=== PATIENT | male | born 1975 | race Caucasian/White ===

== ENCOUNTER 2017-02-28 12:06 | Observation (INO) | payer MEDICAID ==
--- NOTE | 2017-02-28 12:21 | EDM.PDOC ---
ED HPI GENERAL MEDICAL PROBLEM - General Chief Complaint: General Stated Complaint: HIGH BLOOD PRESSURE, ANXIETY Time Seen by Provider: 02/28/17 12:15 Source of Information: Reports: Patient. Denies: Old Records History Limitations: Reports: No Limitations - History of Present Illness INITIAL COMMENTS - FREE TEXT/NARRATIVE: Patient drove himself to the emergency room for evaluation after apparent initial evaluation by the paramedics in his home on 02/25 at about noon with blood pressure of 204/148 at that time by his history. No treatment was given by the paramedics at that time with the patient refusing transfer for further evaluation. The patient has had some intermittent nonspecific retrosternal and left-sided sharp and pressure type 10/10 chest discomfort radiating to his throat with symptoms usually lasting about 5 minutes and associated with some nausea. Symptoms reoccurred at about 07:30 hours this morning with 5/10 chest discomfort at that time, and patient deciding to come in for evaluation. Patient does admit to problems with his anxiety and depression during the last year with patient noncompliant with his medications during that period. He has had some temper outbursts but no history of suicidal or homicidal ideation, plan , etc. He from his today secondary to his temper with the patient wanting to have treatment at this time. No recent history of abdominal pain, heartburn, diarrhea, melena, gross hematochezia, or any food intolerance, including fatty foods, etc. with normal bowel movement earlier this morning. The patient also denies any recent fever, wheezing, dyspnea, etc. with stable occasional nonproductive. No history of recent diplopia, change in mental status , or other change in neurological status, however occasional nonspecific headache and visual spots. There is some mild pleuritic component to his symptoms with discomfort improved to 2/10 without treatment prior to my arrival to this facility. He also just started his Lisinopril about 4 days ago with medication noncompliance with this medication for about 4-5 months Onset: Today Onset Date: 02/28/17 Onset Time: 07:30 Duration: Getting Worse, Intermittent, Other (Otherwise as above) Location: Reports: Neck, Chest, Radiates to (Throat as above). Denies: Head, Face, Abdomen, Back, Pelvis, Upper Extremity, Left, Upper Extremity, Right Quality: Reports: Pressure, Sharp Severity: Moderate Improves with: Reports: None Worsens with: Reports: None Context: Reports: Other (As above) Associated Symptoms: Reports: Chest Pain, Cough, Headaches, Nausea/Vomiting. Denies: Confusion, cough w sputum, Diaphoresis, Fever/Chills, Loss of Appetite, Malaise, Seizure, Shortness of Breath, Syncope, Weakness Treatments DATA MANAGEMENT ANALYST: Reports: Other (see below) (None) CHEST PAIN Pain Score (Numeric/FACES): 2 - Related Data Allergies Allergy/AdvReac Type Severity Reaction Status Date / Time No Known Allergies Allergy Verified 02/28/17 12:08 Home Meds: Home Meds Lisinopril 10 mg PO DAILY 02/28/17 [History] Past Medical History HEENT History: Reports: Allergic Rhinitis, Other (See Below). Denies: Cataract , Glaucoma, Hard of Hearing, Impaired Vision, Macular Degeneration, Retinal Detachment Other HEENT History: Myopic although not wearing glasses, allergic rhinitis with no previous therapy Cardiovascular History: Reports: Hypertension. Denies: Afib, Aneurysm, Arrhythmia, Blood Clots/VTE/DVT, CAD, Heart Failure, Heart Murmur, High Cholesterol, UT, PVD, Syncope Other Cardiovascular History: Patient does not know his cholesterol status Respiratory History: Reports: Pneumothorax, Other (See Below). Denies: Asthma, COPD, Intubation, Difficult, Intubation, Previous, PE, Sleep Apnea Other Respiratory History: Bilateral spontaneous pneumothorax initially in his 20s initially on the right side than on the left side at a later date Gastrointestinal History: Reports: Gastritis, GERD. Denies: Celiac Disease, Cholelithiasis, Chronic Constipation, Chronic Diarrhea, Fecal Incontinence, GI Bleed, Hepatitis, Inflammatory Bowel Disease, Irritable Bowel Syndrome, Jaundice , Pancreatitis, PUD Genitourinary History: Reports: Other (See Below). Denies: Acute Renal Failure , BPH, Chronic Renal Insuffiency, Dialysis, Renal Calculus, Retention, Urinary, STD, Urinary Incontinence, UTI, Recurrent Other Genitourinary History: History of dark urine as a teenager with negative renal biopsy as below Musculoskeletal History: Reports: Arthritis, Back Pain, Chronic, Fracture, Osteoarthritis. Denies: Gout, Neck Pain, Chronic, RA, SLE Other Musculoskeletal History: Phalangeal fracture of Digit #5 of the right hand in his mid 20s, and distal first metacarpal fracture of the right hand at about age 25, bilateral carpal tunnel syndrome with no surgeries to this point Neurological History: Reports: Headaches, Chronic. Denies: Cerebral Aneurysms, Concussion, CVA, Head Trauma, Migraines, MS, Parkinson's, Seizure, TIA Psychiatric History: Reports: Addiction, Anxiety, Depression, Other (See Below) . Denies: Abuse, Victim of, ADD, ADHD, Psych Hospitalization(s), PTSD, Suicide Attempt, Suicidal Ideation Other Psychiatric History: Previous history of alcohol and opiate addiction as below Endocrine/Metabolic History: Reports: None. Denies: Diabetes, Type I, Diabetes , Type II, Hypothyroidism, IDDM Hematologic History: Reports: None. Denies: Anemia, Blood Transfusion(s), Iron Deficiency Immunologic History: Reports: None. Denies: AIDS, HIV, SLE Oncologic (Cancer) History: Reports: None. Denies: Basal Cell Carcinoma, Hodgkin's Lymphoma, Leukemia, Malignant Melanoma, Non-Hodgkin's Lymphoma, Squamous Cell Carcinoma Dermatologic History: Reports: None. Denies: Eczema, Psoriasis - Infectious Disease History Infectious Disease History: Reports: Chicken Pox. Denies: C-Difficile, Measles , Meningitis, Mononucleosis, MRSA, Mumps, Pertussis (Whooping Cough), Rheumatic Fever, Rubella, Scarlet Fever, Shingles, TB, VRE - Past Surgical History Head Surgeries/Procedures: Reports: None HEENT Surgical History: Reports: Oral Surgery, Other (See Below) (I was sometimes 1). Denies: Adenoidectomy, Eye Surgery, Laser Surgery, LASIK, Myringotomy w Tube(s), Naso-Sinus Surgery, Tonsillectomy Other HEENT Surgeries/Procedures: [place] teeth extraction 2 right upper and left lower with other dental extractions Cardiovascular Surgical History: Reports: None. Denies: Varicose Respiratory Surgical History: Reports: Thoracentesis, Other (See Below) Other Respiratory Surgeries/Procedures: Thoracentesis secondary to spontaneous pneumothoraces as above GI Surgical History: Reports: None. Denies: Appendectomy, Cholecystectomy, Colonoscopy, EGD, Hernia, Abdominal, Hernia, Inguinal, Hernia Repair/Other, Polypectomy Male Surgical History: Reports: Circumcision, Other (See Below). Denies: Vasectomy Other Male Surgeries/Procedures: Circumcision as an Endocrine Surgical History: Reports: None. Denies: Thyroid Biopsy Neurological Surgical History: Reports: None. Denies: C-Spine, Discectomy, Laminectomy, Lumbar Spine, Spinal Fusion, Thoracic Spine, Vertebroplasty Musculoskeletal Surgical History: Denies: Arthroscopic Procedure, Carpal Tunnel , Ganglion Cyst, Joint Replacement, ORIF, Shoulder Surgery Oncologic Surgical History: Reports: None Dermatological Surgical History: Reports: None - Past Imaging History Past Imaging History: Reports: None Social & Family History - Family History HEENT: Reports: None. Denies: Glaucoma, Macular Degeneration, Retinal Detachment Cardiac: Reports: CAD, UT, Other (See Below). Denies: Afib, Aneurysm, Arrhythmia, Blood Clots/VTE/DVT, Heart Failure, High Cholesterol, Hypertension, Syncope Other Cardiac Family History: Maternal grandfather with fatal UT at age 63, maternal great-grandfather with fatal UT in his 60s Respiratory: Reports: None. Denies: Asthma, COPD, PE, Pneumothorax, Sleep Apnea GI: Denies: Celiac Disease, Cholelithiasis, Colon Polyps, GERD, GI bleed, Inflammatory Bowel Disease, Irritable Bowel Syndrome, PUD : Reports: None. Denies: Dialysis, Renal Calculus, Renal Disease/ Insufficiency OBGYN: Reports: None. Denies: Endometriosis, Recurrent Spontaneous Musculoskeletal: Reports: Arthritis, Osteoarthritis, Other (See Below). Denies : Gout, RA, SLE Other Musculoskeletal Family History: Maternal grandmother with osteoarthritis and Neurological: Reports: CVA, Other (See Below). Denies: Alzheimers Disease, Cerebral Aneurysms, Dementia, Migraines, MS, Parkinson's, Seizure, TIA Other Neurological Family History: Maternal grandfather with CVA in his 60s Psychiatric: Reports: Anxiety, Bipolar, Depression, Psych Hospitalization(s), Schizophrenia, Suicide Attempt, Other (See Below). Denies: Abuse, Victim of, ADD, ADHD, PTSD Other Psychiatric Family History: Mother with bipolar disorder, suicidal ideation, borderline schizophrenia, and required psychiatric hospitalization, maternal grandmother with bipolar disorder Endocrine/Metabolic: Reports: None. Denies: Diabetes, Type I, Diabetes, type II , IDDM Hematologic: Reports: None. Denies: Anemia Immunologic: Reports: None. Denies: AIDS, HIV, SLE Dermatologic: Reports: None. Denies: Angiodema, Eczema, Psoriasis Oncologic: Reports: None. Denies: Colon, Hodgkin's Lymphoma, Leukemia, Lymphoma , Non-Hodgkin's Lymphoma, Prostate - Tobacco Use Smoking Status *Q: Current Every Day Smoker Tobacco Use Within Last Twelve Months: Cigarettes Years of Tobacco use: 30 Packs/Tins Daily: 1 (Started smoking at age 12 with maximum use of 1.5 packs per day) Smoking Cessation Information Provided To Patient: Yes Second Hand Smoke Exposure: Yes Source of Second Hand Smoke Exposure: smokes Second Hand Smoke Education Provided: Yes - Caffeine Use Caffeine Use: Reports: Coffee (4 cups per week), Soda (5 sodas per day). Denies : Energy Drinks, Tea - Alcohol Use Alcohol Use History: Yes Days Per Week of Alcohol Use: 7 (Alcohol addiction since his late 20s with alcohol treatment in about 2009) Number of Drinks Per Day: 3 (Usually beer) Total Drinks Per Week: 21 Date/Time of Last Drink Comment: Last used for about 4 days ago with previous history of withdrawals from alcohol with no history of DTs, etc. Alcohol Use in Last Twelve Months: Yes Alcohol Use Frequency: Binges - Recreational Drug Use Recreational Drug Use: Yes Drug Use in Last 12 Months: No Recreational Drug Type: Reports: Amphetamines (Speed), Marijuana/Hashish, Methamphetamine, Oxycodone, Other (see below). 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 Denies: Intravenous - Sexual History Sexual History: Reports: Sexually Active, Single Partner. 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 Denies: Fever, Chills, Malaise, Weakness , Fatigue, Night Sweats, Diaphoresis, Decreased Appetite, Weight Loss, Weight Gain HEENT: Reports: Throat Pain (Radiation current chest?), Vision Change ( Occasional nonspecific as above). Denies: Dental Pain, Ear Discharge, Ear Pain , Eye Discharge, Eye Pain, Glasses, Rhinitis, Sinus Problem, Throat Swelling, Vertigo Respiratory: Reports: Cough. Denies: Shortness of Breath, Wheezing, Pleuritic Chest Pain, Sputum, Hemoptysis Cardiovascular: Reports: Chest Pain, Blood Pressure Problem. Denies: Claudication, Dyspnea on Exertion, Edema, Lightheadedness, Orthopnea, Palpitations, PND, Syncope Endocrine: Reports: No Symptoms. Denies: Fatigue GI/Abdominal: Reports: Nausea. Denies: Abdominal Pain, Anorexia, Black Stool, Bloody Stool, Constipation, Diarrhea, Decreased Appetite, Hematemesis, Hematochezia, Melena, Stool Incontinence, Vomiting : Reports: No Symptoms. Denies: Discharge, Dysuria, Flank Pain, Frequency, Hematuria, Incontinence, Pain, Urgency, Urinary Retention Musculoskeletal: Reports: No Symptoms. Denies: Neck Pain, Shoulder Pain, Arm Pain, Back Pain, Leg Pain Skin: Reports: No Symptoms. Denies: Diaphoresis, Bruising, Wound Neurological: Reports: Headache. Denies: Dizziness, Numbness, Paresthesia, Seizure, Syncope, Tingling, Trouble Speaking, Weakness, Change in Speech, Gait Disturbance Psychiatric: Reports: Agitation, Anxiety, Depression, Mood Lability. Denies: Confusion, Cravings, Hallucinations, Homicidal Ideation, Suicidal Ideation Hematologic/Lymphatic: Reports: No Symptoms Immunologic: Reports: No Symptoms ED EXAM, GENERAL - Physical Exam Exam: See Below Exam Limited By: No Limitations General Appearance: Alert, WD/WN, No Apparent Distress, Anxious (Moderate) Eye Exam: Bilateral Eye: EOMI, Normal Inspection (No nystagmus), PERRL Ears: Normal External Exam, Normal Canal, Hearing Grossly Normal, Normal TMs Nose: Normal Inspection, Normal Mucosa, No Blood Throat/Mouth: Normal Lips, Normal Gums, Normal Oropharynx, No Airway Compromise. No: Normal Teeth (Mild broken caries and deformity in the right lower area with no abscess or drainage), Normal Voice, Dysphagia, Perioral Cyanosis Head: Atraumatic, Normocephalic. No: Facial Swelling, Facial Tenderness, Sinus Tenderness Neck: Normal Inspection, Supple, Non-Tender, Full Range of Motion. No: Carotid Bruit, Lymphadenopathy (L), Lymphadenopathy (R), Thyromegaly Respiratory/Chest: No Respiratory Distress, Lungs Clear, Normal Breath Sounds, No Accessory Muscle Use, Chest Non-Tender. No: Pleural Rub, Retractions Cardiovascular: Normal Peripheral Pulses, Regular Rate, Rhythm, No Edema, No Gallop, No JVD, No Murmur, No Rub. No: Gallop/S3, Gallop/S4, Friction Rub Peripheral Pulses: 2+: Radial (L), Radial (R), Dorsalis Pedis (L), Dorsalis Pedis (R) GI/Abdominal: Normal Bowel Sounds, Soft, Non-Tender, No Organomegaly, No Distention, No Abnormal Bruit, No Mass, Pelvis Stable. No: Guarding (Male) Exam: Deferred Rectal (Males) Exam: Deferred Back Exam: Normal Inspection, Full Range of Motion. No: CVA Tenderness (L), CVA Tenderness (R), Muscle Spasm Extremities: Normal Inspection, Normal Range of Motion, Non-Tender, No Pedal Edema, Normal Capillary Refill. No: Jaime's Sign Neurological: Alert, Oriented, CN II-XII Intact, Normal Cognition, Normal Gait, Normal Reflexes (Negative Babinski's), No Motor/Sensory Deficits Psychiatric: Anxious (Moderate), Depressed Mood (Moderate with adequate eye contact). No: Flat Affect, Tearful Skin Exam: Warm, Dry, Intact, Normal Color, No Rash. No: Diaphoretic, Ecchymosis, Petechiae, Wound/Incision Lymphatic: No Adenopathy EKG INTERPRETATION EKG Date: 02/28/17 Time: 12:24 Rhythm: NSR Rate (Beats/Min): 74 [place]: Normal (Neutral) P-Wave: Present (Mild diffuse biphasic P waves with poor R-wave progression in the anterior leads) QRS: Wide (QRS interval of 0.10 seconds representing repolarization changes with possible beginning T-wave inversion in lead aVL) ST-T: Other (As above) QT: Normal SC/PQ Interval: 0.14 seconds Comparison: NA - No Prior EKG EKG Interpretation Comments: 1. No acute ischemic changes 2. Repolarization changes Course - Vital Signs Text/Narrative:: Vital Signs - 24 hr 02/28/17 02/28/17 02/28/17 12:10 12:22 12:30 Temperature [ 37.2 C 36.7 C Temporal] Pulse, Peripheral Pulse, 102 H 86 85 Peripheral [ Right Pulse Oximetry] Respiratory 20 18 18 Rate Blood Pressure Blood Pressure 182/125 H 190/108 H 171/112 H [Left Upper Arm ] O2 Sat by Pulse 100 99 100 Oximetry O2 Sat by Pulse Oximetry [ Nasal Cannula] 02/28/17 02/28/17 02/28/17 12:44 12:45 13:05 Temperature [ Temporal] Pulse, Peripheral Pulse, 93 87 Peripheral [ Right Pulse Oximetry] Respiratory 16 16 Rate Blood Pressure 171/112 H Blood Pressure 161/104 H 163/101 H [Left Upper Arm ] O2 Sat by Pulse 99 99 Oximetry O2 Sat by Pulse Oximetry [ Nasal Cannula] 02/28/17 02/28/17 02/28/17 13:15 13:16 13:30 Temperature [ 36.2 C Temporal] Pulse, 86 Peripheral Pulse, 81 Peripheral [ Right Pulse Oximetry] Respiratory 16 Rate Blood Pressure 163/101 H Blood Pressure 141/88 H [Left Upper Arm ] O2 Sat by Pulse 99 Oximetry O2 Sat by Pulse 85 L Oximetry [ Nasal Cannula] 02/28/17 02/28/17 02/28/17 13:31 13:46 14:01 Temperature [ Temporal] Pulse, Peripheral Pulse, 75 77 72 Peripheral [ Right Pulse Oximetry] Respiratory 16 18 18 Rate Blood Pressure Blood Pressure 144/90 H 127/99 H 139/95 H [Left Upper Arm ] O2 Sat by Pulse 100 100 100 Oximetry O2 Sat by Pulse Oximetry [ Nasal Cannula] Last Recorded V/S: Last Vital Signs Temp 36.2 C 02/28/17 13:16 Pulse 72 02/28/17 14:01 Resp 18 02/28/17 14:01 BP 139/95 H 02/28/17 14:01 Pulse Ox 100 02/28/17 14:01 - Orders/Labs/Meds Orders: Active Orders 24 hr Category Date Time Status Cardiac Monitoring [RC] . DIRECTED Care 02/28/17 12:22 Active EKG Documentation Completion [RC] ASDIRECTED Care 02/28/17 12:22 Active Oxygen Therapy, ED [RC] CONTINUOUS Care 02/28/17 12:22 Active Peripheral IV Care [RC] . DIRECTED Care 02/28/17 12:22 Active Pulse Oximetry [RC] CONTINUOUS Care 02/28/17 12:22 Active Up With Assistance [RC] PFP Care 02/28/17 12:22 Active Vital Signs [RC] PFP Care 02/28/17 12:22 Active Nothing per Oral Now Diet [DIET] Diet 02/28/17 Breakfast Active Chest 1V Frontal [CR] Stat Exams 02/28/17 12:22 Taken CULTURE URINE [RM] Routine Lab 02/28/17 13:00 Received Nitroglycerin [Nitrostat] Med 02/28/17 12:23 Stat 0.4 mg SL ONETIME STA Sodium Chloride 0.9% [Saline Flush] Med 02/28/17 12:22 Active 10 ml FLUSH ASDIRECTED PRN Obtain Past Medical Record [OM.PC] Urgent Oth 02/28/17 12:22 Active Peripheral IV Insertion Adult [OM.PC] Stat Oth 02/28/17 12:22 Ordered Resuscitation Status Stat Resus Stat 02/28/17 12:22 Ordered Medication Orders Nitroglycerin (Nitrostat) 0.4 mg SL ONETIME STA Stop: 03/01/17 12:24 Last Admin: 02/28/17 12:44 Dose: 0.4 mg Sodium Chloride (Saline Flush) 10 ml FLUSH ASDIRECTED PRN PRN Reason: Keep Vein Open Labs: Laboratory Tests 02/28/17 02/28/17 02/28/17 Range/Units 13:00 13:00 13:10 WBC 8.9 (4.0-10.2) K/uL RBC 4.79 (4.33-5.41) M/uL Hgb 16.3 (13.1-16.8) g/dL Hct 46.5 (39.0-49.0) % MCV 97.1 (84.0-98.0) fL MCH 34.0 H (28.2-33.3) pg MCHC 35.1 (31.7-36.0) g/dL RDW 12.5 (11.2-14.1) % Plt Count 243 (150-350) K/uL Neut % (Auto) 64.1 (45.0-80.0) % Lymph % (Auto) 24.7 (10.0-50.0) % Williamson % (Auto) 9.7 (2.0-14.0) % Eos % (Auto) 1.2 (0.0-5.0) % Baso % (Auto) 0.3 (0.0-2.0) % Neut # (Auto) 5.70 (1.40-7.00) K/uL Lymph # (Auto) 2.20 (0.50-3.50) K/uL Williamson # (Auto) 0.86 (0.00-1.00) K/uL Eos # (Auto) 0.11 (0.00-0.50) K/uL Baso # (Auto) 0.03 (0.00-0.20) K/uL PT (9.8-11.7) SEC INR APTT (23.5-30.0) SEC D-Dimer, Quantitative (0-400) ng/mL Sodium (136-145) mmol/L Potassium (3.5-5.1) mmol/L Chloride (98-107) mmol/L Carbon Dioxide (21.0-32.0) mmol/L BUN (7-18) mg/dL Creatinine (0.51-1.17) mg/dL Est Cr Clr Drug Dosing mL/min Estimated GFR (MDRD) mL/min Glucose (74-106) mg/dL Lactic Acid (0.4-2.0) mmol/L Uric Acid (2.6-7.2) mg/dL Calcium (8.5-10.1) mg/dL Magnesium (1.8-2.4) mg/dL Total Bilirubin (0.2-1.0) mg/dL AST (15-37) U/L ALT (12-78) U/L Alkaline Phosphatase (46-116) IU/L Creatine Kinase (26-308) U/L Creatine Kinase Index (0.0-2.5) % CK-MB (CK-2) (0.00-3.60) ng/mL Troponin I (0.000-0.056) ng/mL NT-Pro-B Natriuret Pep (0-125) pg/mL Total Protein (6.4-8.2) g/dL Albumin (3.4-5.0) g/dL TSH, Ultra Sensitive (0.358-3.740) mIU/mL Specimen Type Urincc Urine Color Yellow Urine Appearance Clear Urine pH 5.5 (5.0-9.0) Ur Specific [place] 1.010 (1.005-1.030) Urine Protein Negative (NEGATIVE) mg/dL Urine Glucose (UA) Negative (NEGATIVE) mg/dL Urine Ketones Negative (NEGATIVE) mg/dL Urine Occult Blood Negative (NEGATIVE) Urine Nitrite Negative (NEGATIVE) Urine Bilirubin Negative (NEGATIVE) Urine Urobilinogen 0.2 (0.2-1.0) E.U./dL Ur Leukocyte Esterase Negative (NEGATIVE) Urine RBC 0-5 /HPF Urine WBC 0-5 /HPF Ur Epithelial Cells Rare /LPF Urine Bacteria Rare (NONE TO FEW) /HPF Urine Opiates Screen Negative (NEGATIVE) Urine Methadone Screen Negative (NEGATIVE) U Acetaminophen Screen Negative (NEGATIVE) Ur Barbiturates Screen Negative (NEGATIVE) Ur Tricyclics Screen Negative (NEGATIVE) Ur Phencyclidine Scrn Negative (NEGATIVE) Ur Amphetamine Screen Negative (NEGATIVE) U Methamphetamines Scrn Negative (NEGATIVE) U Benzodiazepines Scrn Negative (NEGATIVE) U Cocaine Metab Screen Negative (NEGATIVE) U Marijuana (THC) Screen Negative (NEGATIVE) Ethyl Alcohol (0.000-0.080) g/dL 02/28/17 02/28/17 02/28/17 Range/Units 13:10 13:10 13:10 WBC (4.0-10.2) K/uL RBC (4.33-5.41) M/uL Hgb (13.1-16.8) g/dL Hct (39.0-49.0) % MCV (84.0-98.0) fL MCH (28.2-33.3) pg MCHC (31.7-36.0) g/dL RDW (11.2-14.1) % Plt Count (150-350) K/uL Neut % (Auto) (45.0-80.0) % Lymph % (Auto) (10.0-50.0) % Williamson % (Auto) (2.0-14.0) % Eos % (Auto) (0.0-5.0) % Baso % (Auto) (0.0-2.0) % Neut # (Auto) (1.40-7.00) K/uL Lymph # (Auto) (0.50-3.50) K/uL Williamson # (Auto) (0.00-1.00) K/uL Eos # (Auto) (0.00-0.50) K/uL Baso # (Auto) (0.00-0.20) K/uL PT 10.8 (9.8-11.7) SEC INR 1.0 APTT 27.7 (23.5-30.0) SEC D-Dimer, Quantitative < 100 (0-400) ng/mL Sodium 139 (136-145) mmol/L Potassium 4.2 (3.5-5.1) mmol/L Chloride 104 (98-107) mmol/L Carbon Dioxide 27.4 (21.0-32.0) mmol/L BUN 10 (7-18) mg/dL Creatinine 0.81 (0.51-1.17) mg/dL Est Cr Clr Drug Dosing 128.47 mL/min Estimated GFR (MDRD) > 60 mL/min Glucose 85 (74-106) mg/dL Lactic Acid (0.4-2.0) mmol/L Uric Acid 3.9 (2.6-7.2) mg/dL Calcium 9.5 (8.5-10.1) mg/dL Magnesium 1.8 (1.8-2.4) mg/dL Total Bilirubin 0.5 (0.2-1.0) mg/dL AST 23 (15-37) U/L ALT 32 (12-78) U/L Alkaline Phosphatase 71 (46-116) IU/L Creatine Kinase 109 (26-308) U/L Creatine Kinase Index 0.5 (0.0-2.5) % CK-MB (CK-2) 0.50 (0.00-3.60) ng/mL Troponin I 0.000 (0.000-0.056) ng/mL NT-Pro-B Natriuret Pep 42 (0-125) pg/mL Total Protein 7.9 (6.4-8.2) g/dL Albumin 4.1 (3.4-5.0) g/dL TSH, Ultra Sensitive 1.612 (0.358-3.740) mIU/mL Specimen Type Urine Color Urine Appearance Urine pH (5.0-9.0) Ur Specific [place] (1.005-1.030) Urine Protein (NEGATIVE) mg/dL Urine Glucose (UA) (NEGATIVE) mg/dL Urine Ketones (NEGATIVE) mg/dL Urine Occult Blood (NEGATIVE) Urine Nitrite (NEGATIVE) Urine Bilirubin (NEGATIVE) Urine Urobilinogen (0.2-1.0) E.U./dL Ur Leukocyte Esterase (NEGATIVE) Urine RBC /HPF Urine WBC /HPF Ur Epithelial Cells /LPF Urine Bacteria (NONE TO FEW) /HPF Urine Opiates Screen (NEGATIVE) Urine Methadone Screen (NEGATIVE) U Acetaminophen Screen (NEGATIVE) Ur Barbiturates Screen (NEGATIVE) Ur Tricyclics Screen (NEGATIVE) Ur Phencyclidine Scrn (NEGATIVE) Ur Amphetamine Screen (NEGATIVE) U Methamphetamines Scrn (NEGATIVE) U Benzodiazepines Scrn (NEGATIVE) U Cocaine Metab Screen (NEGATIVE) U Marijuana (THC) Screen (NEGATIVE) Ethyl Alcohol (0.000-0.080) g/dL 02/28/17 02/28/17 Range/Units 13:10 13:10 WBC (4.0-10.2) K/uL RBC (4.33-5.41) M/uL Hgb (13.1-16.8) g/dL Hct (39.0-49.0) % MCV (84.0-98.0) fL MCH (28.2-33.3) pg MCHC (31.7-36.0) g/dL RDW (11.2-14.1) % Plt Count (150-350) K/uL Neut % (Auto) (45.0-80.0) % Lymph % (Auto) (10.0-50.0) % Williamson % (Auto) (2.0-14.0) % Eos % (Auto) (0.0-5.0) % Baso % (Auto) (0.0-2.0) % Neut # (Auto) (1.40-7.00) K/uL Lymph # (Auto) (0.50-3.50) K/uL Williamson # (Auto) (0.00-1.00) K/uL Eos # (Auto) (0.00-0.50) K/uL Baso # (Auto) (0.00-0.20) K/uL PT (9.8-11.7) SEC INR APTT (23.5-30.0) SEC D-Dimer, Quantitative (0-400) ng/mL Sodium (136-145) mmol/L Potassium (3.5-5.1) mmol/L Chloride (98-107) mmol/L Carbon Dioxide (21.0-32.0) mmol/L BUN (7-18) mg/dL Creatinine (0.51-1.17) mg/dL Est Cr Clr Drug Dosing mL/min Estimated GFR (MDRD) mL/min Glucose (74-106) mg/dL Lactic Acid 1.3 (0.4-2.0) mmol/L Uric Acid (2.6-7.2) mg/dL Calcium (8.5-10.1) mg/dL Magnesium (1.8-2.4) mg/dL Total Bilirubin (0.2-1.0) mg/dL AST (15-37) U/L ALT (12-78) U/L Alkaline Phosphatase (46-116) IU/L Creatine Kinase (26-308) U/L Creatine Kinase Index (0.0-2.5) % CK-MB (CK-2) (0.00-3.60) ng/mL Troponin I (0.000-0.056) ng/mL NT-Pro-B Natriuret Pep (0-125) pg/mL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
[2017-02-28] MEDS ORDERED: Famotidine 20 MG/2 ML SDV IVPUSH ONE (12:22)
[2017-02-28] MEDS ORDERED: Aspirin 81 MG Tab.Chew CHEW ONE (12:22)
[2017-02-28] MEDS ORDERED: Metoprolol Tartrate 5 MG/5 ML SDV IVPUSH ONE (12:22)
[2017-02-28] MEDS ORDERED: Sodium Chloride 0.9% 10 ML Syringe FLUSH PRN ×2 (12:22→14:52)
[2017-02-28] MEDS ORDERED: Ticagrelor 90 MG Tab PO ONE (12:22)
[2017-02-28] MEDS ORDERED: Nitroglycerin 0.4 MG Tab.SL SL STA (12:23)
[2017-02-28] MEDS ORDERED: Acetaminophen 325 MG Tab PO ONE (13:22)
[2017-02-28 13:36] LABS: CHLORIDE,CL 104 mmol/L (98-107); SODIUM,NA 139 mmol/L (136-145)
[2017-02-28] MEDS ORDERED: Temazepam 15 MG Cap PO PRN (14:52)
[2017-02-28] MEDS ORDERED: Acetaminophen 325 MG Tab PO PRN (15:00)
[2017-02-28] MEDS ORDERED: Mirtazapine 15 MG Tab PO SCH ×2 (15:00→18:00)
[2017-02-28] MEDS ORDERED: Nicotine 21 MG/24 Hr Patch TRDERM ONE (16:11)
[2017-02-28] MEDS: Atenolol 25 MG Tab PO SCH (16:38)
[2017-02-28] MEDS: Sertraline 50 MG Tab PO SCH (16:38)
[2017-02-28] MEDS ORDERED: Labetalol 20 MG/4 ML Syringe IVPUSH ONE (17:53)
[2017-02-28] MEDS: busPIRone 15 MG Tab PO SCH (18:03)
[2017-02-28] MEDS: LORazepam 1 MG Tab PO SCH (18:10)
[2017-03-01] MEDS ORDERED: Lisinopril 10 MG Tab PO SCH (08:00)
[2017-03-01 08:04] LABS: CHLORIDE,CL 109 mmol/L (98-107); SODIUM,NA 141 mmol/L (136-145)
[2017-03-01] MEDS: LORazepam 1 MG Tab PO SCH (08:08)
[2017-03-01] MEDS: busPIRone 15 MG Tab PO SCH (08:08)
[2017-03-01] MEDS: Atenolol 25 MG Tab PO SCH (08:08)
[2017-03-01 08:09] VITALS: BP 145/99
[2017-03-01] MEDS: Sertraline 50 MG Tab PO SCH (08:09)
--- NOTE | 2017-03-01 08:47 | PCM.DCSUM1 ---
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 < 0.003 (0.000-0.080) g/dL 02/28/17 03/01/17 03/01/17 Range/Units 23:00 07:05 07:05 WBC 6.5 (4.0-10.2) K/uL RBC 4.55 (4.33-5.41) M/uL Hgb 15.4 (13.1-16.8) g/dL Hct 45.0 (39.0-49.0) % MCV 98.9 H (84.0-98.0) fL MCH 33.8 H (28.2-33.3) pg MCHC 34.2 (31.7-36.0) g/dL RDW 12.7 (11.2-14.1) % Plt Count 215 (150-350) K/uL Neut % (Auto) 53.8 (45.0-80.0) % Lymph % (Auto) 31.2 (10.0-50.0) % [place] % (Auto) 11.7 (2.0-14.0) % Eos % (Auto) 2.8 (0.0-5.0) % Baso % (Auto) 0.5 (0.0-2.0) % Neut # (Auto) 3.48 (1.40-7.00) K/uL Lymph # (Auto) 2.02 (0.50-3.50) K/uL [place] # (Auto) 0.76 (0.00-1.00) K/uL Eos # (Auto) 0.18 (0.00-0.50) K/uL Baso # (Auto) 0.03 (0.00-0.20) K/uL PT (9.8-11.7) SEC INR APTT (23.5-30.0) SEC D-Dimer, Quantitative (0-400) ng/mL Sodium 141 (136-145) mmol/L Potassium 4.1 (3.5-5.1) mmol/L Chloride 109 H (98-107) mmol/L Carbon Dioxide 26.1 (21.0-32.0) mmol/L BUN 13 (7-18) mg/dL Creatinine 0.79 (0.51-1.17) mg/dL Est Cr Clr Drug Dosing 131.72 mL/min Estimated GFR (MDRD) > 60 mL/min Glucose 96 (74-106) mg/dL Hemoglobin A1c (4.3-5.7) % Lactic Acid (0.4-2.0) mmol/L Uric Acid (2.6-7.2) mg/dL Calcium 8.8 (8.5-10.1) mg/dL Magnesium (1.8-2.4) mg/dL Total Bilirubin 0.4 (0.2-1.0) mg/dL AST 19 (15-37) U/L ALT 30 (12-78) U/L Alkaline Phosphatase 57 (46-116) IU/L Creatine Kinase 72 57 (26-308) U/L Creatine Kinase Index 0.4 0.4 (0.0-2.5) % CK-MB (CK-2) 0.30 0.20 (0.00-3.60) ng/mL Troponin I 0.000 0.000 (0.000-0.056) ng/mL NT-Pro-B Natriuret Pep (0-125) pg/mL Total Protein 6.5 (6.4-8.2) g/dL Albumin 3.4 (3.4-5.0) g/dL Triglycerides 82 (30-150) mg/dL Cholesterol 176 (100-200) mg/dL LDL Cholesterol, Calc 101 H (0-100) mg/dL HDL Cholesterol 59 (40-60) mg/dL TSH, Ultra Sensitive (0.358-3.740) mIU/mL Specimen Type Urine Color Urine Appearance Urine pH (5.0-9.0) Ur Specific [place] (1.005-1.030) Urine Protein (NEGATIVE) mg/dL Urine Glucose (UA) (NEGATIVE) mg/dL Urine Ketones (NEGATIVE) mg/dL Urine Occult Blood (NEGATIVE) Urine Nitrite (NEGATIVE) Urine Bilirubin (NEGATIVE) Urine Urobilinogen (0.2-1.0) E.U./dL Ur Leukocyte Esterase (NEGATIVE) Urine RBC /HPF Urine WBC /HPF Ur Epithelial Cells /LPF Urine Bacteria (NONE TO FEW) /HPF Urine Opiates Screen (NEGATIVE) Urine Methadone Screen (NEGATIVE) U Acetaminophen Screen (NEGATIVE) Ur Barbiturates Screen (NEGATIVE) Ur Tricyclics Screen (NEGATIVE) Ur Phencyclidine Scrn (NEGATIVE) Ur Amphetamine Screen (NEGATIVE) U Methamphetamines Scrn (NEGATIVE) U Benzodiazepines Scrn (NEGATIVE) U Cocaine Metab Screen (NEGATIVE) U Marijuana (THC) Screen (NEGATIVE) Ethyl Alcohol (0.000-0.080) g/dL 03/01/17 Range/Units 07:05 WBC (4.0-10.2) K/uL RBC (4.33-5.41) M/uL Hgb (13.1-16.8) g/dL Hct (39.0-49.0) % MCV (84.0-98.0) fL MCH (28.2-33.3) pg MCHC (31.7-36.0) g/dL RDW (11.2-14.1) % Plt Count (150-350) K/uL Neut % (Auto) (45.0-80.0) % Lymph % (Auto) (10.0-50.0) % [place] % (Auto) (2.0-14.0) % Eos % (Auto) (0.0-5.0) % Baso % (Auto) (0.0-2.0) % Neut # (Auto) (1.40-7.00) K/uL Lymph # (Auto) (0.50-3.50) K/uL [place] # (Auto) (0.00-1.00) K/uL Eos # (Auto) (0.00-0.50) K/uL Baso # (Auto) (0.00-0.20) K/uL PT (9.8-11.7) SEC INR APTT (23.5-30.0) SEC D-Dimer, Quantitative (0-400) ng/mL Sodium (136-145) mmol/L Potassium (3.5-5.1) mmol/L Chloride (98-107) mmol/L Carbon Dioxide (21.0-32.0) mmol/L BUN (7-18) mg/dL Creatinine (0.51-1.17) mg/dL Est Cr Clr Drug Dosing mL/min Estimated GFR (MDRD) mL/min Glucose (74-106) mg/dL Hemoglobin A1c 5.4 (4.3-5.7) % Lactic Acid (0.4-2.0) mmol/L Uric Acid (2.6-7.2) mg/dL Calcium (8.5-10.1) mg/dL Magnesium (1.8-2.4) mg/dL Total Bilirubin (0.2-1.0) mg/dL AST (15-37) U/L ALT (12-78) U/L Alkaline Phosphatase (46-116) IU/L Creatine Kinase (26-308) U/L Creatine Kinase Index (0.0-2.5) % CK-MB (CK-2) (0.00-3.60) ng/mL Troponin I (0.000-0.056) ng/mL NT-Pro-B Natriuret Pep (0-125) pg/mL Total Protein (6.4-8.2) g/dL Albumin (3.4-5.0) g/dL Triglycerides (30-150) mg/dL Cholesterol (100-200) mg/dL LDL Cholesterol, Calc (0-100) mg/dL HDL Cholesterol (40-60) mg/dL TSH, Ultra Sensitive (0.358-3.740) mIU/mL Specimen Type Urine Color Urine Appearance Urine pH (5.0-9.0) Ur Specific [place] (1.005-1.030) Urine Protein (NEGATIVE) mg/dL Urine Glucose (UA) (NEGATIVE) mg/dL Urine Ketones (NEGATIVE) mg/dL Urine Occult Blood (NEGATIVE) Urine Nitrite (NEGATIVE) Urine Bilirubin (NEGATIVE) Urine Urobilinogen (0.2-1.0) E.U./dL Ur Leukocyte Esterase (NEGATIVE) Urine RBC /HPF Urine WBC /HPF Ur Epithelial Cells /LPF Urine Bacteria (NONE TO FEW) /HPF Urine Opiates Screen (NEGATIVE) Urine Methadone Screen (NEGATIVE) U Acetaminophen Screen (NEGATIVE) Ur Barbiturates Screen (NEGATIVE) Ur Tricyclics Screen (NEGATIVE) Ur Phencyclidine Scrn (NEGATIVE) Ur Amphetamine Screen (NEGATIVE) U Methamphetamines Scrn (NEGATIVE) U Benzodiazepines Scrn (NEGATIVE) U Cocaine Metab Screen (NEGATIVE) U Marijuana (THC) Screen (NEGATIVE) Ethyl Alcohol (0.000-0.080) g/dL DIDI Results - Last 24 hrs: Microbiology 02/28/17 13:00 Urine, Clean Catch Urine Culture - Preliminary NO GROWTH AFTER 1 DAY Med Orders - Current: Current Medications Acetaminophen (Tylenol) 650 mg PO Q4H PRN PRN Reason: Pain Atenolol (Tenormin) 25 mg PO DAILY [facility] Last Admin: 03/01/17 08:08 Dose: 25 mg Buspirone HCl (Buspar) 15 mg PO BID [facility] Last Admin: 03/01/17 08:08 Dose: 15 mg Lisinopril (Prinivil) 10 mg PO DAILY [facility] Last Admin: 03/01/17 08:08 Dose: 10 mg Lorazepam (Ativan) 1 mg PO TID [facility] Last Admin: 03/01/17 08:08 Dose: 1 mg Mirtazapine (Remeron) 15 mg PO QPM [facility] Last Admin: 02/28/17 18:03 Dose: 15 mg Nitroglycerin (Nitrostat) 0.4 mg SL ONETIME STA Stop: 03/01/17 12:24 Last Admin: 02/28/17 12:44 Dose: 0.4 mg Sertraline HCl (Zoloft) 100 mg PO DAILY [facility] Last Admin: 03/01/17 08:09 Dose: 100 mg Sodium Chloride (Saline Flush) 10 ml FLUSH ASDIRECTED PRN PRN Reason: Keep Vein Open Last Admin: 02/28/17 18:19 Dose: 10 ml Sodium Chloride (Saline Flush) 10 ml FLUSH Q12HR PRN PRN Reason: Keep Vein Open Temazepam (Restoril) 15 mg PO BEDTIME PRN PRN Reason: Insomnia Last Admin: 02/28/17 22:37 Dose: 15 mg Discontinued Medications Acetaminophen (Tylenol) 650 mg PO NOW ONE Stop: 02/28/17 13:23 Last Admin: 02/28/17 13:24 Dose: 650 mg Aspirin (Aspirin) 324 mg CHEW ONETIME ONE Stop: 02/28/17 12:23 Last Admin: 02/28/17 12:45 Dose: 324 mg Famotidine (Pepcid) 40 mg IVPUSH ONETIME ONE Stop: 02/28/17 12:23 Last Admin: 02/28/17 12:46 Dose: 40 mg Labetalol HCl (Normodyne) 10 mg IVPUSH ONETIME ONE PRN Reason: Protocol Stop: 02/28/17 17:54 Last Admin: 02/28/17 18:17 Dose: 10 mg Metoprolol Tartrate (Lopressor) 2.5 mg IVPUSH ONETIME ONE Stop: 02/28/17 12:23 Last Admin: 02/28/17 13:15 Dose: 2.5 mg Mirtazapine (Remeron) 15 mg PO BEDTIME [facility] Last Admin: 02/28/17 16:00 Dose: Not Given Nicotine (Habitrol) 21 mg TRDERM ONETIME ONE Stop: 02/28/17 16:12 Last Admin: 02/28/17 16:36 Dose: 21 mg Ticagrelor (Brilinta) 180 mg PO ONETIME ONE Stop: 02/28/17 12:23 Last Admin: 02/28/17 12:46 Dose: 180 mg - Exam Quality Assessment: Reports: Supplemental Oxygen, DVT Prophylaxis. Denies: Central Line/PICC, Urine Catheter, Skin Breakdown, Restraints General: Reports: Alert, Oriented, Cooperative, No Acute Distress HEENT: Reports: Pupils Equal, Pupils Reactive, EOMI, Mucous Membr. Moist/[place] Neck: Reports: Supple, Trachea Midline, No JVD, No Thyromegaly, +2 Carotid Pulse wo Bruit. Denies: Lymphadenopathy Lungs: Reports: Clear to Auscultation, Normal Respiratory Effort. Denies: Rub Cardiovascular: Reports: Regular Rate, Regular Rhythm, No Murmurs. Denies: Gallops, Rubs GI/Abdominal Exam: Normal Bowel Sounds, Soft, Non-Tender, No Organomegaly, No Distention, No Abnormal Bruit, No Mass, Pelvis Stable. No: Guarding (Male) Exam: Deferred Rectal (Males) Exam: Deferred Back Exam: Reports: Normal Inspection, Full Range of Motion. Denies: CVA Tenderness (L), CVA Tenderness (R), Muscle Spasm Extremities: Normal Inspection, Normal Range of Motion, Non-Tender, No Pedal Edema, Normal Capillary Refill. No: Jaime's Sign Skin: Reports: Warm, Dry, Intact Neurological: Reports: No New Focal Deficit Psy/Mental Status: Reports: Anxious (Moderate), Depressed (Moderate). Denies: Agitated, Suicidal Ideation, Homicidal Ideation, Hallucinations, Withdrawal Symptoms EKG INTERPRETATION EKG Date: 03/01/17 Time: 07:48 Rhythm: NSR (Mild sinus bradycardia) Rate (Beats/Min): 56 [place]: Normal (Neutral) P-Wave: Enlarged (Mild diffuse biphasic P waves with poor R wave progression in the anterior leads) QRS: Normal (QRS interval of 0.10 seconds representing repolarization changes with new T-wave inversion in lead V1 and possible U waves in leads V1 and V2) ST-T: Normal QT: Normal [place]/PQ Interval: 0.14 seconds Comparison: Change From Previous EKG (As above since 02/28/17) EKG Interpretation Comments: 1. No acute ischemic changes 2. Mild sinus bradycardia 3. Possible left atrial enlargement *Q Meaningful Use (DIS) - VTE *Q VTE Criteria *Q: - Stroke *Q Stroke Criteria *Q: - AMI *Q AMI Criteria *Q:
--- NOTE | 2017-03-01 09:51 | PCM.SN ---
- Free Text/Narrative Note: The patient refuses to select a new primary care care provider at this time. Compliance with all medications, close follow-up as per discharge instructions, etc. once again strongly encouraged.
== END 2017-03-01 10:20 | disposition home or self-care (01) ==
LOC: LL.ED 12:06 → LL.MS 14:15
PROVIDERS: ADMIT Family Medicine; ATTEND Family Medicine
DX: R07.9 Chest pain, unspecified (principal); I10 Essential (primary) hypertension; F41.8 Other specified anxiety disorders; M15.0 Primary generalized (osteo)arthritis; K21.9 Gastro-esophageal reflux disease without esophagitis; K02.9 Dental caries, unspecified; J43.1 Panlobular emphysema; Z71.6 Tobacco abuse counseling; Z79.82 Long term (current) use of aspirin; Z79.899 Other long term (current) drug therapy; Z98.890 Other specified postprocedural states; F17.210 Nicotine dependence, cigarettes, uncomplicated
CPT/HCPCS: 36415; 71010; 80053; 80061; 80305; 81001; 82550; 82553; 83036; 83605; 83735; 83880; 84443; 84484; 84550; 85025; 85379; 85610; 85730; 87086; 93005; 96374; 96375; 99285; A9270; G0480; J7050; G0378; J3490; S0028